=== PATIENT | female | born 1965 | race Caucasian/White ===

== ENCOUNTER 2020-07-04 07:06 | Emergency (ER) | payer OTHER, SELFPAY ==
[~2020-07-04] VITALS: Ht 157.5 cm; Wt 113.4 kg
[2020-07-04 07:39] VITALS: BP 138/76; Ht 157.5 cm; Wt 113.4 kg
== END 2020-07-04 08:00 | disposition home or self-care (01) ==
LOC: ED 07:06
DX: R50.9 Fever, unspecified (principal); M79.10 Myalgia, unspecified site; J02.9 Acute pharyngitis, unspecified; J45.909 Unspecified asthma, uncomplicated; Z20.828 Contact with and (suspected) exposure to other viral communicable diseases; Z88.1 Allergy status to other antibiotic agents; Z90.710 Acquired absence of both cervix and uterus
CPT/HCPCS: U0003

== ENCOUNTER 2020-09-06 08:14 | Emergency (ER) | payer OTHER ==
[~2020-09-06] VITALS: Ht 160 cm; Wt 132.9 kg
[2020-09-06 08:21] VITALS: Ht 160 cm; Wt 132.9 kg
[2020-09-06 09:38] LABS: BASOPHIL % 1.1 % (0.2-1.3); PLATELET COUNT 271 x10^3mcL (179-408)
[2020-09-06 10:11] LABS: CALCIUM 8.9 mg/dL (8.5-10.1); CARBON DIOXIDE 27.7 mmol/L (21-32); CHLORIDE SERUM 98 mmol/L (98-107); CREATININE SERUM 0.7 mg/dL (0.6-1.0); GFR1 > 60 mL/min; GLUCOSE SERUM 127 mg/dL (74-106); SODIUM SERUM 134 mmol/L (136-145)
[2020-09-06 10:15] LABS: ALBUMIN 3.7 g/dL (3.4-5.0); ALKALINE PHOSPHATASE 98 U/L (46-116); ALT/SGPT 93 U/L (14-59); AST/SGOT 51 U/L (15-37); BILIRUBIN TOTAL 0.43 mg/dL (0.20-1.00)
[2020-09-06 12:32] VITALS: BP 151/75
== END 2020-09-06 12:32 | disposition home or self-care (01) ==
LOC: ED 08:14
PROVIDERS: Emergency Medicine
DX: R60.0 Localized edema (principal); R06.00 Dyspnea, unspecified; J45.909 Unspecified asthma, uncomplicated; I10 Essential (primary) hypertension; Z90.89 Acquired absence of other organs; Z88.1 Allergy status to other antibiotic agents; Z91.14 Patient's other noncompliance with medication regimen
CPT/HCPCS: 83880; J1940